=== PATIENT | female | born 1965 | race Hispanic/Latino ===

== ENCOUNTER → 2020-10-03 | Outpatient (CLI) | payer MEDICAID ==
[~2020-10-03] MED LIST: ACET1TAB25 PO; INSU300I SQ; LIDOCAINE HCL 4% LTA SOL 4 ML VIAL TP ONE; OXCA600T18 PO; QUET300T18 PO; SERT-439 PO; SULF1TAB89 PO
== END | disposition home or self-care (01) ==
LOC: WHH 08:20
PROVIDERS: ATTEND Podiatrist Foot & Ankle Surgery
DX: E11.621 Type 2 diabetes mellitus with foot ulcer (principal); L89.893 Pressure ulcer of other site, stage 3; L97.512 Non-pressure chronic ulcer of other part of right foot with fat layer exposed; E11.40 Type 2 diabetes mellitus with diabetic neuropathy, unspecified; E11.21 Type 2 diabetes mellitus with diabetic nephropathy; J44.9 Chronic obstructive pulmonary disease, unspecified; I10 Essential (primary) hypertension; E78.5 Hyperlipidemia, unspecified; E78.00 Pure hypercholesterolemia, unspecified; K21.9 Gastro-esophageal reflux disease without esophagitis; F31.9 Bipolar disorder, unspecified; Z79.01 Long term (current) use of anticoagulants; Z98.51 Tubal ligation status; Z90.49 Acquired absence of other specified parts of digestive tract
CPT/HCPCS: 11042; 87070; 87077; 87186; A4450; A6209

== ENCOUNTER 2021-09-13 11:51 | Inpatient (IN) | payer MEDICAID ==
[~2021-09-13] VITALS: Ht 149.9 cm; Wt 57.9 kg
[2021-09-13] VITALS (29 sets, daily range): BP systolic 85–129; BP diastolic 37–86
[~2021-09-13 11:51] MED LIST changes: +ACET-2079 PO; -ACET1TAB25 PO; -LIDOCAINE HCL 4% LTA SOL 4 ML VIAL TP ONE; -QUET300T18 PO; +QUET300T19 PO
[2021-09-13] MEDS ORDERED: ONDANSETRON 4MG INJ IVP ONE (12:30)
[2021-09-13] MEDS ORDERED: ZOSYN 3.375GM +NS 50ML IV SCH (12:30)
[2021-09-13] MEDS ORDERED: VANCOMYCIN 1G VIAL IVPB ONE (12:30)
[2021-09-13] MEDS ORDERED: MORPHINE 2 MG SYG IVP ONE (12:30)
[2021-09-13] MEDS ORDERED: 0.9%NACL 1000ML 1,905 ML IV ONE (12:30)
[2021-09-13] MEDS ORDERED: VANCOMYCIN 1G/250ML KIT 250 ML IV ONE (12:31)
[2021-09-13 12:33] LABS: BASOPHILS % (AUTO) 0.1 % (0.0-5.0); EOSINOPHILS % (AUTO) 0.7 % (0.0-8.0); HEMATOCRIT 29.5 % (36-48); LYMPHOCYTES % (AUTO) 7.5 % (21.0-51.0); MEAN CORPUSCULAR HEMOGLOBIN 26.2 pg (27.0-33.0); MEAN CORPUSCULAR HGB CONC 32.9 g/dL (32.0-36.0); MEAN CORPUSCULAR VOLUME 79.7 fL (79-99); MONOCYTES % (AUTO) 1.5 % (3.0-13.0); NEUTROPHILS % (AUTO) 88.3 % (40.0-77.0); PLATELET COUNT (AUTO) 243 K/uL (130-400); RED CELL DISTRIBUTION WIDTH 16.1 % (11.0-15.5); WHITE BLOOD COUNT (AUTO) 10.3 K/uL (4.8-10.8)
[2021-09-13 12:47] LABS: BILIRUBIN,TOTAL 1.2 mg/dL (0.2-1.0); TOTAL PROTEIN, SERUM 5.6 g/dL (6.0-8.3)
[2021-09-13] MEDS ORDERED: NOREPINEPHRIN 4MG/NS 250ML 250 ML IV SCH (13:00)
[2021-09-13 13:08] LABS: ALBUMIN 0.8 g/dL (3.5-5.0)
[2021-09-13 13:30] LABS: CREATININE 2.9 mg/dL (0.5-1.5)
[2021-09-13] MEDS ORDERED: VANCOMYCIN PROTOCOL PER PHARMACY IV SCH (13:30)
[2021-09-13] MEDS ORDERED: HYDRALAZINE 20MG/ML VIAL IV PRN (13:30)
[2021-09-13] MEDS: HEPARIN 5,000 UNIT VIAL SQ SCH (13:30)
[2021-09-13] MEDS ORDERED: LABETALOL 20MG SYG IV PRN (13:30)
[2021-09-13] MEDS ORDERED: ALBUTEROL 0.083% 2.5 MG/3 ML INH IH PRN (13:30)
[2021-09-13] MEDS ORDERED: ONDANSETRON 4MG INJ IVP PRN (13:30)
[2021-09-13] MEDS ORDERED: LACTULOSE 20 GM/30 ML UDCUP PO PRN (13:30)
[2021-09-13] MEDS ORDERED: DEXTROSE 50%-WATER 50 ML DISP.SYRIN IV ONE ×2 (13:39→18:42)
[2021-09-13 13:46] LABS: INR 1.42 (0.85-1.15); PROTHROMBIN TIME 15.2 SEC (9.6-11.6)
[2021-09-13 13:47] LABS: PARTIAL THROMBOPLASTIN TIME 42.1 SEC (26.3-35.5)
[2021-09-13] MEDS ORDERED: METRONIDAZOLE 500MG/100ML BAG 100 ML IVPB SCH (14:00)
[2021-09-13] MEDS ORDERED: SODIUM BICARB 8.4% 50ML SYRINGE IVP SCH ×2 (14:00)
[2021-09-13] MEDS: MIDODRINE HCL 5 MG TABLET PO SCH ×2 (14:00→21:00)
[2021-09-13] MEDS ORDERED: SUCCINYLCHOLINE 200MG/10ML SYR ONE (14:27)
[2021-09-13] MEDS ORDERED: LIDOCAINE PF 100MG/5ML (2%) SYRINGE 5ML ONE (14:27)
[2021-09-13] MEDS ORDERED: PROPOFOL 10 MG/ML 20ML VIAL IV ONE (14:27)
[2021-09-13] MEDS ORDERED: DEXAMETHASONE SOD PHOSPHATE 10MG/ML 1ML VIAL ONE (14:27)
[2021-09-13] MEDS ORDERED: MIDAZOLAM HCL 1 MG/ML 2ML VIAL ONE (14:27)
[2021-09-13] MEDS ORDERED: NEOSTIGMINE 5MG/5ML SYR IV ONE (14:28)
[2021-09-13] MEDS ORDERED: ONDANSETRON 4MG INJ ONE (14:28)
[2021-09-13] MEDS ORDERED: GLYCOPYRROLATE 1 MG/5 ML SYRINGE ONE (14:28)
[2021-09-13] MEDS ORDERED: SODIUM BICARB 50MEQ 50ML VIAL 100 ML ONE (14:29)
[2021-09-13] MEDS ORDERED: FENTANYL CITRATE PF 50 MCG/1 ML 2ML VIAL ONE (14:29)
[2021-09-13] MEDS ORDERED: ROCURONIUM 10MG/1ML SYR 10 MG/ML ML ONE (14:29)
[2021-09-13] MEDS ORDERED: KETAMINE 50MG/ML SYRINGE 50 MG/ML DISP.SYRIN IV ONE (14:35)
[2021-09-13] MEDS ORDERED: ALBUMIN (HUMAN) 5% 250 ML IV ONE (14:35)
[2021-09-13] MEDS: CEFEPIME HCL 1 GM VIAL IVP SCH (14:52)
[2021-09-13] MEDS: CLINDAMYCIN IVPB 600MG/50ML 50 ML IV SCH ×2 (14:52→21:01)
[2021-09-13] MEDS ORDERED: SUGAMMADEX SODIUM 200 MG/2 ML VIAL IV ONE (15:54)
[2021-09-13 16:27] LABS: ABG BASE EXCESS -8.7 mmol/L (-2.0-3.0); ABG OXYGEN SATURATION 99.4 % (95.0-99.0); ABG PCO2 30 mmHg (32-45)
[2021-09-13 18:23] LABS: BILIRUBIN,URINE Negative (NEGATIVE); COLOR,URINE Yellow (YELLOW); GLUCOSE, URINE (UA) Negative (NEGATIVE); KETONES,URINE Negative (NEGATIVE); LEUKOCYTE ESTERASE ,URINE Small (NEGATIVE); NITRATE,URINE Negative (NEGATIVE); OCCULT BLOOD,URINE Moderate (NEGATIVE); PH,URINE 5.5 (5.0-8.0); PROTEIN,URINE POS 2+ mg/dL (NEGATIVE); UROBILINOGEN,URINE 0.2 mg/dL (0.2-1.0)
[2021-09-13 18:33] LABS: APPEARANCE,URINE TURBID (CLEAR)
[2021-09-13 18:39] LABS: BACTERIA,URINE Few /HPF (None Seen); SQUAMOUS EPITHELIAL CELL,UR Moderate /HPF (0-2); YEAST,URINE BUDDING Many /HPF (None Seen)
[2021-09-13] MEDS: 0.9%NACL 1000ML 1,000 ML IV SCH (20:00)
[2021-09-13] MEDS: INSULIN HUMULIN R 100 UNIT/ML 3ML SQ SCH ×2 (20:59→21:00)
[2021-09-14] VITALS (79 sets, daily range): BP systolic 69–138; BP diastolic 34–133
[2021-09-14] MEDS: 0.9%NACL 1000ML 1,000 ML IV SCH (01:32)
[2021-09-14] MEDS: HEPARIN 5,000 UNIT VIAL SQ SCH ×2 (01:33→13:47)
[2021-09-14 04:43] LABS: BASOPHILS % (AUTO) 0.9 % (0.0-5.0); EOSINOPHILS % (AUTO) 0.2 % (0.0-8.0); HEMATOCRIT 28.5 % (36-48); LYMPHOCYTES % (AUTO) 2.7 % (21.0-51.0); MEAN CORPUSCULAR HEMOGLOBIN 26.2 pg (27.0-33.0); MEAN CORPUSCULAR HGB CONC 32.3 g/dL (32.0-36.0); MEAN CORPUSCULAR VOLUME 81.2 fL (79-99); MONOCYTES % (AUTO) 1.2 % (3.0-13.0); NEUTROPHILS % (AUTO) 91.7 % (40.0-77.0); PLATELET COUNT (AUTO) 233 K/uL (130-400); RED BLOOD CELL COUNT(AUTO) 3.51 MIL/uL (4.00-5.50); RED CELL DISTRIBUTION WIDTH 16.6 % (11.0-15.5); WHITE BLOOD COUNT (AUTO) 14.4 K/uL (4.8-10.8)
[2021-09-14 05:12] LABS: ALBUMIN 0.9 g/dL (3.5-5.0); BILIRUBIN,TOTAL 1.5 mg/dL (0.2-1.0); CREATININE 2.6 mg/dL (0.5-1.5); MAGNESIUM 1.3 mg/dL (1.80-2.40); PHOSPHORUS 4.5 mg/dL (2.5-4.9); POTASSIUM 3.4 mmol/L (3.5-5.1); THYROID STIMULATING HORMONE 1.54 uIU/mL (0.36-3.74); TOTAL PROTEIN, SERUM 5.3 g/dL (6.0-8.3)
[2021-09-14] MEDS: CLINDAMYCIN IVPB 600MG/50ML 50 ML IV SCH ×3 (05:15→21:33)
[2021-09-14] MEDS ORDERED: POTASSIUM CHLORIDE 10% ELIXIR 20 MEQ/15 ML UDCUP ONE (05:31)
[2021-09-14] MEDS ORDERED: MAGNESIUM 2GM PREMIX 50ML 50 ML IV ONE (05:32)
[2021-09-14] MEDS: INSULIN HUMULIN R 100 UNIT/ML 3ML SQ SCH ×4 (06:07→21:00)
[2021-09-14 07:29] LABS: ABG BASE EXCESS -9.3 mmol/L (-2.0-3.0); ABG HCO3 14.2 mmol/L (21.0-28.0); ABG OXYGEN SATURATION 98.6 % (95.0-99.0); ABG PCO2 26 mmHg (32-45)
[2021-09-14] MEDS ORDERED: COMPOUND IV MISC 1 EACH IVSOLN MISC PRN (07:30)
[2021-09-14] MEDS: PANTOPRAZOLE 40 MG TAB DR PO SCH (08:49)
[2021-09-14] MEDS: SODIUM BICARB 8.4% 50ML SYRING 150 MEQ in DEXTROSE 5%-WATER 1,000 ML IVP SCH ×2 (08:50→19:46)
[2021-09-14] MEDS: MIDODRINE HCL 5 MG TABLET PO SCH ×3 (08:50→21:33)
[2021-09-14] MEDS ORDERED: ENOXAPARIN SODIUM 30 MG/0.3 ML SQ SCH (09:00)
[2021-09-14] MEDS: CEFEPIME HCL 1 GM VIAL IVP SCH (13:46)
[2021-09-14] MEDS: NOREPINEPHRIN 4MG/NS 250ML 250 ML IV SCH (15:52)
[2021-09-14] MEDS ORDERED: KCL 20 MEQ ERTAB PO SCH (17:30)
[2021-09-14] MEDS: ACETAMINOPHEN 325 MG TAB PO PRN (19:36)
[2021-09-14] MEDS ORDERED: VANCOMYCIN 500MG+NS 100ML 100 ML IV ONE (20:08)
[2021-09-14] MEDS: VANCOMYCIN 500MG VIAL IVPB SCH (20:13)
[2021-09-15] VITALS (25 sets, daily range): BP systolic 107–154; BP diastolic 63–125
[2021-09-15] MEDS: HEPARIN 5,000 UNIT VIAL SQ SCH ×2 (01:40→13:30)
[2021-09-15] MEDS: SODIUM HYPOCHLORITE 0.5% [FULL STRENGTH] 473 ML TOPICAL SOLN TP SCH ×2 (03:16→08:34)
[2021-09-15] MEDS: ACETAMINOPHEN 325 MG TAB PO PRN (04:03)
[2021-09-15] MEDS: SODIUM BICARB 8.4% 50ML SYRING 150 MEQ in DEXTROSE 5%-WATER 1,000 ML IVP SCH ×2 (05:28→15:15)
[2021-09-15] MEDS: NOREPINEPHRIN 4MG/NS 250ML 250 ML IV SCH (05:29)
[2021-09-15 05:46] LABS: EOSINOPHILS % (AUTO) 0.1 % (0.0-8.0); HEMATOCRIT 30.4 % (36-48); MEAN CORPUSCULAR HEMOGLOBIN 26.3 pg (27.0-33.0); MEAN CORPUSCULAR HGB CONC 33.2 g/dL (32.0-36.0); MEAN CORPUSCULAR VOLUME 79.2 fL (79-99); MONOCYTES % (AUTO) 0.7 % (3.0-13.0); NEUTROPHILS % (AUTO) 87.3 % (40.0-77.0); PLATELET COUNT (AUTO) 227 K/uL (130-400); RED BLOOD CELL COUNT(AUTO) 3.84 MIL/uL (4.00-5.50); RED CELL DISTRIBUTION WIDTH 16.7 % (11.0-15.5); WHITE BLOOD COUNT (AUTO) 28.6 K/uL (4.8-10.8)
[2021-09-15] MEDS: CLINDAMYCIN IVPB 600MG/50ML 50 ML IV SCH (05:57)
[2021-09-15 06:20] LABS: ALBUMIN 0.8 g/dL (3.5-5.0); BILIRUBIN,TOTAL 0.7 mg/dL (0.2-1.0); CREATININE 2.9 mg/dL (0.5-1.5); POTASSIUM 3.5 mmol/L (3.5-5.1); TOTAL PROTEIN, SERUM 5.4 g/dL (6.0-8.3)
[2021-09-15] MEDS: INSULIN HUMULIN R 100 UNIT/ML 3ML SQ SCH ×4 (06:39→21:00)
[2021-09-15] MEDS: HONEY 1 APPL/ML TUBE TP SCH (08:33)
[2021-09-15] MEDS: MIDODRINE HCL 5 MG TABLET PO SCH ×3 (08:33→21:00)
[2021-09-15] MEDS: PANTOPRAZOLE 40 MG TAB DR PO SCH (08:33)
[2021-09-15 16:00] LABS: INR 1.28 (0.85-1.15); PROTHROMBIN TIME 13.8 SEC (9.6-11.6)
[2021-09-15] MEDS ORDERED: VANCOMYCIN 500MG+NS 100ML 100 ML IV ONE (19:47)
[2021-09-15] MEDS: VANCOMYCIN 500MG VIAL IVPB SCH (19:51)
[2021-09-15] MEDS ORDERED: ZOSYN 3.375GM +NS 50ML IV SCH (21:00)
[2021-09-15] MEDS ORDERED: DEXAMETHASONE SOD PHOSPHATE 10MG/ML 1ML VIAL ONE (21:02)
[2021-09-15] MEDS ORDERED: SUCCINYLCHOLINE CHLORIDE 20 MG/ML 10 ML VIAL ONE (21:02)
[2021-09-15] MEDS ORDERED: PROPOFOL 10 MG/ML 20ML VIAL IV ONE (21:02)
[2021-09-15] MEDS ORDERED: LIDOCAINE PF 100MG/5ML (2%) SYRINGE 5ML ONE (21:02)
[2021-09-15] MEDS ORDERED: GLYCOPYRROLATE 1 MG/5 ML SYRINGE ONE (21:03)
[2021-09-15] MEDS ORDERED: NEOSTIGMINE 5MG/5ML SYR IV ONE (21:03)
[2021-09-15] MEDS ORDERED: ONDANSETRON 4MG INJ ONE (21:03)
[2021-09-15] MEDS ORDERED: FENTANYL CITRATE PF 50 MCG/1 ML 2ML VIAL ONE (21:03)
[2021-09-15] MEDS ORDERED: ROCURONIUM 10MG/1ML SYR 10 MG/ML ML ONE (21:04)
[2021-09-15] MEDS ORDERED: MIDAZOLAM HCL 1 MG/ML 2ML VIAL ONE (21:04)
[2021-09-15] MEDS ORDERED: ETOMIDATE 20MG VIAL ONE ×2 (21:05→23:05)
[2021-09-15] MEDS ORDERED: ROPIVACAINE 0.5% 5MG/ML 30ML IJ ONE (21:09)
[2021-09-15] MEDS ORDERED: ALBUMIN (HUMAN) 5% 250 ML IV ONE (21:10)
[2021-09-15] MEDS ORDERED: EPHEDRINE SULFATE 50 MG/ML AMPULE ONE (21:23)
[2021-09-15] MEDS ORDERED: NOREPINEPHRINE BITARTRATE 1 MG/1 ML ML IV ONE (22:56)
[2021-09-15] MEDS ORDERED: SODIUM BICARB 8.4% 50ML SYRINGE ONE (22:58)
[2021-09-16] VITALS (51 sets, daily range): BP systolic 95–142; BP diastolic 47–83
[2021-09-16] MEDS ORDERED: PROPOFOL 1000 MG/100 ML 100 ML IV ONE
[2021-09-16] MEDS ORDERED: MIDAZOLAM 100MG-0.9% NS 100ML 100 ML IV ONE
[2021-09-16] MEDS: SODIUM BICARB 8.4% 50ML SYRING 150 MEQ in DEXTROSE 5%-WATER 1,000 ML IVP SCH (00:20)
[2021-09-16] MEDS ORDERED: PROPOFOL 1000 MG/100 ML IV PRN (00:30)
[2021-09-16] MEDS ORDERED: MIDAZOLAM 100MG-0.9% NS 100ML 100ML BAG IV PRN (00:30)
[2021-09-16] MEDS: HEPARIN 5,000 UNIT VIAL SQ SCH ×2 (01:06→13:46)
[2021-09-16 04:10] LABS: BASOPHILS % (AUTO) 0.4 % (0.0-5.0); EOSINOPHILS % (AUTO) 0.1 % (0.0-8.0); HEMATOCRIT 25.1 % (36-48); LYMPHOCYTES % (AUTO) 4.6 % (21.0-51.0); MEAN CORPUSCULAR HEMOGLOBIN 26.4 pg (27.0-33.0); MEAN CORPUSCULAR HGB CONC 33.9 g/dL (32.0-36.0); NEUTROPHILS % (AUTO) 86.7 % (40.0-77.0); PLATELET COUNT (AUTO) 146 K/uL (130-400); RED BLOOD CELL COUNT(AUTO) 3.22 MIL/uL (4.00-5.50); RED CELL DISTRIBUTION WIDTH 16.4 % (11.0-15.5); WHITE BLOOD COUNT (AUTO) 10.5 K/uL (4.8-10.8)
[2021-09-16 04:31] LABS: ALBUMIN 0.9 g/dL (3.5-5.0); CREATININE 2.6 mg/dL (0.5-1.5); POTASSIUM 3.1 mmol/L (3.5-5.1); TOTAL PROTEIN, SERUM 4.7 g/dL (6.0-8.3)
[2021-09-16] MEDS: INSULIN HUMULIN R 100 UNIT/ML 3ML SQ SCH ×4 (06:24→19:56)
[2021-09-16] MEDS: GABAPENTIN 300 MG CAPSULE PO SCH ×3 (08:30→19:55)
[2021-09-16] MEDS: PANTOPRAZOLE 40 MG TAB DR PO SCH (08:31)
[2021-09-16] MEDS: HONEY 1 APPL/ML TUBE TP SCH (08:31)
[2021-09-16] MEDS: SODIUM HYPOCHLORITE 0.5% [FULL STRENGTH] 473 ML TOPICAL SOLN TP SCH (08:31)
[2021-09-16] MEDS: MIDODRINE HCL 5 MG TABLET PO SCH ×3 (08:31→19:55)
[2021-09-16] MEDS: ZOSYN 3.375GM +NS 50ML IV SCH ×2 (08:50→19:54)
[2021-09-16 10:00] LABS: ABG BASE EXCESS 2.6 mmol/L (-2.0-3.0); ABG OXYGEN SATURATION 98.8 % (95.0-99.0); ABG PCO2 37 mmHg (32-45)
[2021-09-16] MEDS: HYDROMORPHONE 0.5 MG SYG (0.5MG/0.5ML) IVP PRN (19:53)
[2021-09-16] MEDS ORDERED: VANCOMYCIN 500MG+NS 100ML 100 ML IV SCH (20:00)
[2021-09-16] MEDS ORDERED: POTASSIUM CHLORIDE 10% ELIXIR 20 MEQ/15 ML UDCUP PO SCH (20:00)
[2021-09-16] MEDS: VANCOMYCIN 500MG VIAL IVPB SCH (20:00)
[2021-09-17] VITALS (24 sets, daily range): BP systolic 105–157; BP diastolic 22–94
[2021-09-17] MEDS: HEPARIN 5,000 UNIT VIAL SQ SCH ×2 (01:50→13:06)
[2021-09-17 02:18] LABS: HEPATITIS B SURFACE ANTIGEN Non-Reactive (Negative)
[2021-09-17 02:19] LABS: HEPATITIS C ANTIBODY Non-Reactive (NEGATIVE)
[2021-09-17 04:30] LABS: BASOPHILS % (AUTO) 0.2 % (0.0-5.0); EOSINOPHILS % (AUTO) 4.9 % (0.0-8.0); HEMATOCRIT 22.4 % (36-48); LYMPHOCYTES % (AUTO) 28.8 % (21.0-51.0); MEAN CORPUSCULAR HEMOGLOBIN 26.9 pg (27.0-33.0); MEAN CORPUSCULAR HGB CONC 33.9 g/dL (32.0-36.0); MEAN CORPUSCULAR VOLUME 79.2 fL (79-99); MONOCYTES % (AUTO) 4.8 % (3.0-13.0); NEUTROPHILS % (AUTO) 56.8 % (40.0-77.0); PLATELET COUNT (AUTO) 117 K/uL (130-400); RED BLOOD CELL COUNT(AUTO) 2.83 MIL/uL (4.00-5.50); RED CELL DISTRIBUTION WIDTH 16.8 % (11.0-15.5)
[2021-09-17 05:28] LABS: CREATININE 2.7 mg/dL (0.5-1.5); POTASSIUM 3.9 mmol/L (3.5-5.1)
[2021-09-17 05:32] LABS: ALBUMIN 0.8 g/dL (3.5-5.0); BILIRUBIN,TOTAL 0.5 mg/dL (0.2-1.0); TOTAL PROTEIN, SERUM 4.6 g/dL (6.0-8.3)
[2021-09-17] MEDS: INSULIN HUMULIN R 100 UNIT/ML 3ML SQ SCH ×4 (07:20→20:34)
[2021-09-17] MEDS ORDERED: VANCOMYCIN 500MG+NS 100ML 100 ML IV SCH ×2 (07:30→20:00)
[2021-09-17] MEDS: PANTOPRAZOLE 40 MG TAB DR PO SCH (08:03)
[2021-09-17] MEDS: MIDODRINE HCL 5 MG TABLET PO SCH ×2 (08:03→13:05)
[2021-09-17] MEDS: GABAPENTIN 300 MG CAPSULE PO SCH ×3 (08:03→20:31)
[2021-09-17] MEDS: ZOSYN 3.375GM +NS 50ML IV SCH (08:04)
[2021-09-17] MEDS: HONEY 1 APPL/ML TUBE TP SCH (08:13)
[2021-09-17] MEDS: SODIUM HYPOCHLORITE 0.5% [FULL STRENGTH] 473 ML TOPICAL SOLN TP SCH (08:17)
[2021-09-17] MEDS: HYDROMORPHONE 0.5 MG SYG (0.5MG/0.5ML) IVP PRN ×2 (14:30→20:34)
[2021-09-17] MEDS ORDERED: MIDODRINE HCL 5 MG TABLET PO PRN (20:00)
[2021-09-17] MEDS ORDERED: FUROSEMIDE 40MG VIAL IV ONE (20:30)
[2021-09-17] MEDS: INSULIN GLARGINE 100 UNITS/ML 10 ML VIAL SQ SCH (20:30)
[2021-09-17] MEDS: CEFTRIAXONE 1G VIAL IVP SCH (20:32)
[2021-09-18] MEDS: HEPARIN 5,000 UNIT VIAL SQ SCH ×2 (02:09→13:31)
[2021-09-18] MEDS: HYDROMORPHONE 0.5 MG SYG (0.5MG/0.5ML) IVP PRN ×4 (03:08→22:51)
[2021-09-18 03:24] VITALS: BP 105/65
[2021-09-18 05:33] LABS: BASOPHILS % (AUTO) 0.3 % (0.0-5.0); EOSINOPHILS % (AUTO) 8.6 % (0.0-8.0); HEMATOCRIT 24.8 % (36-48); LYMPHOCYTES % (AUTO) 27.1 % (21.0-51.0); MEAN CORPUSCULAR HEMOGLOBIN 26.1 pg (27.0-33.0); MEAN CORPUSCULAR HGB CONC 31.9 g/dL (32.0-36.0); MEAN CORPUSCULAR VOLUME 81.8 fL (79-99); MONOCYTES % (AUTO) 4.4 % (3.0-13.0); NEUTROPHILS % (AUTO) 57.4 % (40.0-77.0); PLATELET COUNT (AUTO) 117 K/uL (130-400); RED BLOOD CELL COUNT(AUTO) 3.03 MIL/uL (4.00-5.50); RED CELL DISTRIBUTION WIDTH 16.8 % (11.0-15.5); WHITE BLOOD COUNT (AUTO) 10.8 K/uL (4.8-10.8)
[2021-09-18 05:41] LABS: CREATININE 2.7 mg/dL (0.5-1.5); MAGNESIUM 1.6 mg/dL (1.80-2.40); POTASSIUM 3.8 mmol/L (3.5-5.1)
[2021-09-18] MEDS: INSULIN GLARGINE 100 UNITS/ML 10 ML VIAL SQ SCH (06:03)
[2021-09-18] MEDS: INSULIN HUMULIN R 100 UNIT/ML 3ML SQ SCH ×4 (06:03→20:32)
[2021-09-18 07:20] VITALS: BP 99/63
[2021-09-18] MEDS: GABAPENTIN 300 MG CAPSULE PO SCH ×3 (10:57→20:31)
[2021-09-18] MEDS: PANTOPRAZOLE 40 MG TAB DR PO SCH (11:01)
[2021-09-18 11:20] VITALS: BP 112/70
[2021-09-18] MEDS ORDERED: MAGNESIUM 2GM PREMIX 50ML 50 ML IV SCH (12:00)
[2021-09-18 15:15] VITALS: BP 123/76
[2021-09-18 20:00] VITALS: BP 120/74
[2021-09-18] MEDS: CEFTRIAXONE 1G VIAL IVP SCH (20:31)
[2021-09-18] MEDS: ZOSYN 3.375GM +NS 50ML IV SCH (22:30)
[2021-09-19] VITALS (24 sets, daily range): BP systolic 73–145; BP diastolic 40–75
[2021-09-19] MEDS: HEPARIN 5,000 UNIT VIAL SQ SCH ×2 (01:10→13:30)
[2021-09-19 05:07] LABS: HEMATOCRIT 24.1 % (36-48); MEAN CORPUSCULAR HEMOGLOBIN 26.1 pg (27.0-33.0); MEAN CORPUSCULAR HGB CONC 31.5 g/dL (32.0-36.0); MEAN CORPUSCULAR VOLUME 82.8 fL (79-99); RED BLOOD CELL COUNT(AUTO) 2.91 MIL/uL (4.00-5.50); RED CELL DISTRIBUTION WIDTH 16.3 % (11.0-15.5); WHITE BLOOD COUNT (AUTO) 10.8 K/uL (4.8-10.8)
[2021-09-19 05:16] LABS: CREATININE 2.5 mg/dL (0.5-1.5); POTASSIUM 4.1 mmol/L (3.5-5.1)
[2021-09-19 05:22] LABS: INR 0.99 (0.85-1.15); PROTHROMBIN TIME 10.8 SEC (9.6-11.6)
[2021-09-19 05:23] LABS: PARTIAL THROMBOPLASTIN TIME 33.5 SEC (26.3-35.5)
[2021-09-19] MEDS: INSULIN HUMULIN R 100 UNIT/ML 3ML SQ SCH ×4 (06:38→21:00)
[2021-09-19] MEDS: ZOSYN 3.375GM +NS 50ML IV SCH ×2 (08:25→21:32)
[2021-09-19] MEDS: GABAPENTIN 300 MG CAPSULE PO SCH ×3 (09:00→21:09)
[2021-09-19] MEDS: PANTOPRAZOLE 40 MG TAB DR PO SCH (09:00)
[2021-09-19] MEDS: FUROSEMIDE 20MG VIAL IV SCH (09:00)
[2021-09-19] MEDS: HYDROMORPHONE 0.5 MG SYG (0.5MG/0.5ML) IVP PRN ×3 (11:22→21:08)
[2021-09-19] MEDS ORDERED: MIDAZOLAM HCL 1 MG/ML 2ML VIAL ONE (13:40)
[2021-09-19] MEDS ORDERED: PROPOFOL 10 MG/ML 20ML VIAL IV ONE (13:40)
[2021-09-19] MEDS ORDERED: EPHEDRINE SULFATE 50 MG/ML AMPULE ONE (13:55)
[2021-09-19] MEDS ORDERED: FENTANYL CITRATE PF 50 MCG/1 ML 2ML VIAL ONE ×2 (14:14→14:59)
[2021-09-19] MEDS ORDERED: DEXTROSE 50%-WATER 50 ML DISP.SYRIN IV ONE (15:34)
[2021-09-20] MEDS: HYDROMORPHONE 0.5 MG SYG (0.5MG/0.5ML) IVP PRN ×4 (01:23→23:43)
[2021-09-20] MEDS: HEPARIN 5,000 UNIT VIAL SQ SCH ×2 (01:33→14:18)
[2021-09-20 03:55] VITALS: BP 110/67
[2021-09-20 05:36] LABS: HEMATOCRIT 27.9 % (36-48); MEAN CORPUSCULAR HEMOGLOBIN 26.4 pg (27.0-33.0); MEAN CORPUSCULAR HGB CONC 30.5 g/dL (32.0-36.0); MEAN CORPUSCULAR VOLUME 86.6 fL (79-99); PLATELET COUNT (AUTO) 213 K/uL (130-400); RED BLOOD CELL COUNT(AUTO) 3.22 MIL/uL (4.00-5.50); RED CELL DISTRIBUTION WIDTH 16.6 % (11.0-15.5)
[2021-09-20 05:45] LABS: CREATININE 2.4 mg/dL (0.5-1.5); POTASSIUM 4.6 mmol/L (3.5-5.1)
[2021-09-20] MEDS: INSULIN HUMULIN R 100 UNIT/ML 3ML SQ SCH ×4 (05:45→20:22)
[2021-09-20 09:43] VITALS: BP 132/80
[2021-09-20] MEDS: PANTOPRAZOLE 40 MG TAB DR PO SCH (09:58)
[2021-09-20] MEDS: GABAPENTIN 300 MG CAPSULE PO SCH ×3 (09:58→20:20)
[2021-09-20] MEDS: ZOSYN 3.375GM +NS 50ML IV SCH ×2 (09:59→20:21)
[2021-09-20] MEDS: FUROSEMIDE 20MG VIAL IV SCH (10:00)
[2021-09-20 11:10] VITALS: BP 116/65
[2021-09-20] MEDS ORDERED: TRAMADOL /APAP 37.5MG/325MG TAB PO PRN (12:30)
[2021-09-20] MEDS: GABAPENTIN 100 MG CAPSULE PO SCH ×2 (14:26→20:21)
[2021-09-20 15:05] VITALS: BP 133/77
[2021-09-20] MEDS ORDERED: HYDROMORPHONE 1 MG INJ IVP ONE (16:15)
[2021-09-20 20:00] VITALS: BP 134/86
[2021-09-20] MEDS: TRAMADOL /APAP 37.5MG/325MG TAB PO PRN (21:40)
[2021-09-21] VITALS: BP 126/70
[2021-09-21] MEDS: HEPARIN 5,000 UNIT VIAL SQ SCH ×3 (01:14→23:32)
[2021-09-21 04:47] VITALS: BP 125/70
[2021-09-21] MEDS: INSULIN HUMULIN R 100 UNIT/ML 3ML SQ SCH ×4 (05:59→20:55)
[2021-09-21 06:09] LABS: HEMATOCRIT 26.8 % (36-48); MEAN CORPUSCULAR HEMOGLOBIN 26.5 pg (27.0-33.0); MEAN CORPUSCULAR HGB CONC 31.3 g/dL (32.0-36.0); MEAN CORPUSCULAR VOLUME 84.5 fL (79-99); RED BLOOD CELL COUNT(AUTO) 3.17 MIL/uL (4.00-5.50); RED CELL DISTRIBUTION WIDTH 17.2 % (11.0-15.5); WHITE BLOOD COUNT (AUTO) 13.9 K/uL (4.8-10.8)
[2021-09-21 06:16] LABS: CREATININE 2.3 mg/dL (0.5-1.5); POTASSIUM 4.3 mmol/L (3.5-5.1)
[2021-09-21 08:00] VITALS: BP 130/67
[2021-09-21] MEDS: ZOSYN 3.375GM +NS 50ML IV SCH ×2 (08:27→20:17)
[2021-09-21] MEDS: PANTOPRAZOLE 40 MG TAB DR PO SCH (08:28)
[2021-09-21] MEDS: GABAPENTIN 300 MG CAPSULE PO SCH ×3 (08:28→20:17)
[2021-09-21] MEDS: FUROSEMIDE 20MG VIAL IV SCH (08:29)
[2021-09-21] MEDS: GABAPENTIN 100 MG CAPSULE PO SCH ×3 (08:50→20:17)
[2021-09-21] MEDS: HYDROMORPHONE 0.5 MG SYG (0.5MG/0.5ML) IVP PRN ×2 (08:50→19:21)
[2021-09-21 12:00] VITALS: BP 115/65
[2021-09-21] MEDS: TRAMADOL /APAP 37.5MG/325MG TAB PO PRN (14:32)
[2021-09-21 16:00] VITALS: BP 144/77
[2021-09-21 20:05] VITALS: BP 143/80
[2021-09-22 00:26] VITALS: BP 116/62
[2021-09-22] MEDS: HYDROMORPHONE 0.5 MG SYG (0.5MG/0.5ML) IVP PRN ×5 (01:33→19:59)
[2021-09-22] MEDS: TRAMADOL /APAP 37.5MG/325MG TAB PO PRN (04:01)
[2021-09-22 04:17] VITALS: BP 139/72
[2021-09-22] MEDS: INSULIN HUMULIN R 100 UNIT/ML 3ML SQ SCH ×3 (05:27→16:30)
[2021-09-22 05:49] LABS: HEMATOCRIT 27.1 % (36-48); MEAN CORPUSCULAR HEMOGLOBIN 26.5 pg (27.0-33.0); MEAN CORPUSCULAR HGB CONC 30.3 g/dL (32.0-36.0); MEAN CORPUSCULAR VOLUME 87.7 fL (79-99); RED BLOOD CELL COUNT(AUTO) 3.09 MIL/uL (4.00-5.50); RED CELL DISTRIBUTION WIDTH 17.9 % (11.0-15.5); WHITE BLOOD COUNT (AUTO) 12.4 K/uL (4.8-10.8)
[2021-09-22 06:06] LABS: CREATININE 2.2 mg/dL (0.5-1.5); POTASSIUM 4.1 mmol/L (3.5-5.1)
[2021-09-22 07:51] VITALS: BP 125/68
[2021-09-22] MEDS: PANTOPRAZOLE 40 MG TAB DR PO SCH (08:34)
[2021-09-22] MEDS: ZOSYN 3.375GM +NS 50ML IV SCH (08:34)
[2021-09-22] MEDS: GABAPENTIN 100 MG CAPSULE PO SCH ×2 (08:35→13:34)
[2021-09-22] MEDS: GABAPENTIN 300 MG CAPSULE PO SCH ×2 (08:35→13:34)
[2021-09-22] MEDS: FUROSEMIDE 20MG VIAL IV SCH (08:36)
[2021-09-22] MEDS ORDERED: FLUCONAZOLE 100 MG TAB PO SCH (09:00)
[2021-09-22 11:48] VITALS: BP 123/73
[2021-09-22] MEDS: HEPARIN 5,000 UNIT VIAL SQ SCH (13:35)
[2021-09-22] MEDS ORDERED: ASPIRIN 325MG TAB PO ONE (16:30)
[2021-09-22] MEDS ORDERED: ATORVASTATIN 40 MG TABLET PO SCH (21:00)
[2021-09-23] MEDS ORDERED: ASPIRIN 81 MG EC TAB PO SCH (09:00)
== END 2021-09-22 21:05 | DRG 710 ==
LOC: EDH 11:51 → EDHIP 11:52 → 2DH 19:30 → 2CH 09-14 01:24 → 3CH 09-17 19:16
PROVIDERS: ADMIT Internal Medicine Critical Care Medicine; ATTEND Internal Medicine Critical Care Medicine
PROC: 0J9P0ZZ Drainage of Left Lower Leg Subcutaneous Tissue and Fascia, Open Approach (ICD-10-PCS; 2021-09-13)
PROC: 05HY33Z Insertion of Infusion Device into Upper Vein, Percutaneous Approach (ICD-10-PCS; 2021-09-14)
PROC: 0Y6C0Z3 Detachment at Right Upper Leg, Low, Open Approach (ICD-10-PCS; principal; 2021-09-15 22:01)
PROC: 0YQF0ZZ Repair Right Knee Region, Open Approach (ICD-10-PCS; 2021-09-19)
DX: A41.9 Sepsis, unspecified organism (principal); R65.21 Severe sepsis with septic shock; N17.0 Acute kidney failure with tubular necrosis; M72.6 Necrotizing fasciitis; I21.4 Non-ST elevation (NSTEMI) myocardial infarction; L02.415 Cutaneous abscess of right lower limb; D63.8 Anemia in other chronic diseases classified elsewhere; E11.65 Type 2 diabetes mellitus with hyperglycemia; E78.5 Hyperlipidemia, unspecified; F31.9 Bipolar disorder, unspecified; I10 Essential (primary) hypertension; Z91.19 Patient's noncompliance with other medical treatment and regimen; Z20.822 Contact with and (suspected) exposure to COVID-19; M25.461 Effusion, right knee; J44.9 Chronic obstructive pulmonary disease, unspecified; E11.51 Type 2 diabetes mellitus with diabetic peripheral angiopathy without gangrene; N39.0 Urinary tract infection, site not specified; F41.9 Anxiety disorder, unspecified; L02.416 Cutaneous abscess of left lower limb; Z79.899 Other long term (current) drug therapy
CPT/HCPCS: 36415; 70450; 70544; 70551; 71045; 73700; 80048; 80053; 80202; 81001; 82140; 82435; 82550; 82803; 82947; 82948; 83605; 83735; 83880; 84100; 84132; 84145; 84295; 84443; 84484; 85018; 85025; 85027; 85610; 85730; 86140; 86701; 86850; 86900; 86901; 86923; 87040; 87070; 87076; 87077; 87088; 87186; 87205; 87340; 87390; 87520; 87635; 93005; 94002; 94003; 97039; C1751; C1894; G0378; J0330; J0692; J0696; J1100; J1170; J1644; J1815; J1940; J2001; J2250; J2405; J2543; J2704; J2710; J2795; J3010; J3370; J3475; J3490; J7030; J7070; P9045

== ENCOUNTER 2022-07-08 17:53 | Inpatient (IN) | payer MEDICAID ==
[~2022-07-08] VITALS: Ht 149.9 cm; Wt 49.6 kg
[~2022-07-08 17:53] MED LIST changes: +BUSP5TAB3 PO; +FOLI1 PO; +FURO20TA4 PO; -SULF1TAB89 PO
[2022-07-08 19:14] LABS: BASOPHILS % (AUTO) 0.2 % (0.0-5.0); EOSINOPHILS % (AUTO) 0.5 % (0.0-8.0); LYMPHOCYTES % (AUTO) 11.7 % (21.0-51.0); MEAN CORPUSCULAR HEMOGLOBIN 28.3 pg (27.0-33.0); MEAN CORPUSCULAR HGB CONC 29.6 g/dL (32.0-36.0); MEAN CORPUSCULAR VOLUME 95.8 fL (79-99); MONOCYTES % (AUTO) 7.7 % (3.0-13.0); NEUTROPHILS % (AUTO) 78.6 % (40.0-77.0); NUCLEATED RED BLOOD CELLS 0.2 % (0.0-0.19); PLATELET COUNT (AUTO) 441 K/uL (130-400); RED BLOOD CELL COUNT(AUTO) 1.66 MIL/uL (4.00-5.50); RED CELL DISTRIBUTION WIDTH 20.3 % (11.0-15.5)
[2022-07-08 19:26] LABS: POTASSIUM 3.4 mmol/L (3.5-5.1)
[2022-07-08 19:27] LABS: INR 1.05 (0.85-1.15); PROTHROMBIN TIME 11.4 SEC (9.6-11.6)
[2022-07-08 19:31] LABS: ALBUMIN 1.3 g/dL (3.5-5.0); TOTAL PROTEIN, SERUM 5.9 g/dL (6.0-8.3)
[2022-07-08 19:33] LABS: HEMATOCRIT 15.9 % (36-48)
[2022-07-08] MEDS ORDERED: ALPRAZOLAM 0.25 MG TABLET ONE (22:22)
[2022-07-08] MEDS: INSULIN HUMULIN R 100 UNIT/ML 3ML SQ SCH (22:27)
[2022-07-09] VITALS (22 sets, daily range): BP systolic 101–153; BP diastolic 48–96
[2022-07-09] MEDS: INSULIN HUMULIN R 100 UNIT/ML 3ML SQ SCH ×4 (06:29→21:00)
[2022-07-09] MEDS ORDERED: ALPRAZOLAM 0.5 MG TABLET PO PRN (07:00)
[2022-07-09 07:14] LABS: CREATININE 2.1 mg/dL (0.5-1.5); MAGNESIUM 1.7 mg/dL (1.80-2.40); PHOSPHORUS 3.2 mg/dL (2.5-4.9); POTASSIUM 3.3 mmol/L (3.5-5.1)
[2022-07-09 07:30] LABS: HEMOGLOBIN A1C 5.1 % (4.0-6.0)
[2022-07-09 08:07] LABS: BASOPHILS % (AUTO) 0.3 % (0.0-5.0); EOSINOPHILS % (AUTO) 1.1 % (0.0-8.0); LYMPHOCYTES % (AUTO) 6.5 % (21.0-51.0); MEAN CORPUSCULAR HEMOGLOBIN 29.5 pg (27.0-33.0); MEAN CORPUSCULAR HGB CONC 33.6 g/dL (32.0-36.0); MEAN CORPUSCULAR VOLUME 87.6 fL (79-99); MONOCYTES % (AUTO) 3.3 % (3.0-13.0); NUCLEATED RED BLOOD CELLS 0.8 % (0.0-0.19); PLATELET COUNT (AUTO) 319 K/uL (130-400); RED BLOOD CELL COUNT(AUTO) 2.51 MIL/uL (4.00-5.50); RED CELL DISTRIBUTION WIDTH 18.3 % (11.0-15.5); WHITE BLOOD COUNT (AUTO) 22.6 K/uL (4.8-10.8)
[2022-07-09] MEDS: METOCLOPRAMIDE 10 MG TABLET PO SCH ×3 (09:16→16:47)
[2022-07-09] MEDS: PANTOPRAZOLE 40 MG/VIAL IVP SCH (09:16)
[2022-07-09] MEDS ORDERED: PHARMACY COMMUNICATION MISC SCH ×2 (14:00→14:30)
[2022-07-09] MEDS ORDERED: LACTULOSE 20 GM/30 ML UDCUP PO ONE (14:32)
[2022-07-09] MEDS ORDERED: PEG 3350/NA SULF,BICARB,CL/KCL 4000 ML SOLN PO ONE (16:00)
[2022-07-09] MEDS ORDERED: HONEY 1 APPL/ML TUBE TP SCH (21:30)
[2022-07-09] MEDS ORDERED: NYSTATIN 15 GM POWDER TP SCH (21:30)
[2022-07-09] MEDS ORDERED: HEPARIN 5,000 UNIT VIAL IRRIG SCH (21:30)
[2022-07-09] MEDS ORDERED: MAGNESIUM 4GM PREMIX 100ML 100 ML IV ONE (21:30)
[2022-07-09] MEDS ORDERED: POTASSIUM CHLORIDE 10% ELIXIR 20 MEQ/15 ML UDCUP PO ONE (21:30)
[2022-07-10 02:32] LABS: HEPATITIS B SURFACE ANTIGEN Non-Reactive (Nonreactive)
[2022-07-10 03:24] VITALS: BP 146/88
[2022-07-10] MEDS ORDERED: POTASSIUM CHLORIDE 10% ELIXIR 20 MEQ/15 ML UDCUP ONE (04:22)
[2022-07-10] MEDS ORDERED: HYDROXYZINE 25 MG TABLET PO ONE (04:30)
[2022-07-10] MEDS: INSULIN HUMULIN R 100 UNIT/ML 3ML SQ SCH (05:21)
[2022-07-10 06:58] LABS: HEMATOCRIT 23.4 % (36-48); MEAN CORPUSCULAR HEMOGLOBIN 29.2 pg (27.0-33.0); MEAN CORPUSCULAR HGB CONC 31.6 g/dL (32.0-36.0); MEAN CORPUSCULAR VOLUME 92.5 fL (79-99); NUCLEATED RED BLOOD CELLS 0.2 % (0.0-0.19); RED BLOOD CELL COUNT(AUTO) 2.53 MIL/uL (4.00-5.50); RED CELL DISTRIBUTION WIDTH 19.9 % (11.0-15.5)
[2022-07-10 07:10] VITALS: BP 128/76
[2022-07-10 07:13] LABS: CREATININE 1.8 mg/dL (0.5-1.5); MAGNESIUM 2.2 mg/dL (1.80-2.40); POTASSIUM 4.2 mmol/L (3.5-5.1)
[2022-07-10] MEDS: PANTOPRAZOLE 40 MG/VIAL IVP SCH (08:32)
== END 2022-07-10 12:00 | disposition left against medical advice (07) | DRG 720 ==
LOC: EDH 17:53 → EDHIP 17:54 → 4BH 07-09 04:03
PROVIDERS: ADMIT Internal Medicine Infectious Disease; ATTEND Internal Medicine Infectious Disease
DX: A41.9 Sepsis, unspecified organism (principal); I12.0 Hypertensive chronic kidney disease with stage 5 chronic kidney disease or end stage renal disease; E11.22 Type 2 diabetes mellitus with diabetic chronic kidney disease; L97.929 Non-pressure chronic ulcer of unspecified part of left lower leg with unspecified severity; D64.9 Anemia, unspecified; E11.43 Type 2 diabetes mellitus with diabetic autonomic (poly)neuropathy; Z89.611 Acquired absence of right leg above knee; Z99.2 Dependence on renal dialysis; N18.6 End stage renal disease; Z89.511 Acquired absence of right leg below knee
CPT/HCPCS: 36415; 80048; 80053; 82270; 82948; 83036; 83605; 83735; 83880; 84100; 84484; 85007; 85025; 85027; 85610; 86704; 86706; 86850; 86900; 86901; 86923; 87040; 87070; 87076; 87077; 87186; 87340; 87635; 90935; 93005; 93306; 93356; C9113; G0378; J1644; J1815; J3475; P9016

== ENCOUNTER 2022-11-06 12:36 | Emergency (ER) | payer MEDICAID ==
[~2022-11-06 12:36] MED LIST changes: -ACET-2079 PO; -INSU300I SQ; -OXCA600T18 PO; -QUET300T19 PO; -SERT-439 PO
== END 2022-11-06 13:10 | disposition left against medical advice (07) ==
LOC: EDH 12:36
DX: Z53.21 Procedure and treatment not carried out due to patient leaving prior to being seen by health care provider (principal)

== ENCOUNTER → 2022-11-14 | Emergency (ER) | payer MEDICAID ==
[~2022-11-14] VITALS: Ht 152.4 cm; Wt 56.7 kg
[~2022-11-14] MED LIST changes: -FOLI1 PO; -FURO20TA4 PO
[2022-11-14 10:17] VITALS: BP 176/67; PULSE 90; RESP 20
== END ==
LOC: EDH 10:16
DX: T85.698A Other mechanical complication of other specified internal prosthetic devices, implants and grafts, initial encounter (principal); Z53.21 Procedure and treatment not carried out due to patient leaving prior to being seen by health care provider
CPT/HCPCS: 99281

== ENCOUNTER 2022-11-25 18:30 | Emergency (ER) | payer MEDICAID ==
[~2022-11-25] VITALS: Ht 157.5 cm; Wt 63.5 kg
[2022-11-25 18:32] VITALS: BP 163/48; PULSE 93; RESP 16
[2022-11-25] MEDS ORDERED: HYDROCODONE/ACETAMINOPHEN 5/325 MG TAB PO ONE (19:00)
[2022-11-25] MEDS ORDERED: MORPHINE 2 MG SYG IVP ONE (19:30)
[2022-11-25] MEDS ORDERED: ONDANSETRON 4MG INJ IVP ONE (19:30)
[2022-11-25] MEDS ORDERED: LORAZEPAM 2 MG/ML 1 ML VIAL IM ONE (19:30)
[2022-11-25] MEDS ORDERED: LACTATED RINGERS 1000ML 1,000 ML IV ONE (19:30)
== END 2022-11-25 20:16 | disposition left against medical advice (07) ==
LOC: EDH 18:30
DX: S72.452A Displaced supracondylar fracture without intracondylar extension of lower end of left femur, initial encounter for closed fracture (principal); E11.22 Type 2 diabetes mellitus with diabetic chronic kidney disease; I12.0 Hypertensive chronic kidney disease with stage 5 chronic kidney disease or end stage renal disease; N18.9 Chronic kidney disease, unspecified; N17.9 Acute kidney failure, unspecified; E78.00 Pure hypercholesterolemia, unspecified; F41.9 Anxiety disorder, unspecified; Z88.7 Allergy status to serum and vaccine; Z89.611 Acquired absence of right leg above knee; Z90.49 Acquired absence of other specified parts of digestive tract; Z99.2 Dependence on renal dialysis; W07.XXXA Fall from chair, initial encounter; Y93.89 Activity, other specified; Y92.89 Other specified places as the place of occurrence of the external cause; Y99.8 Other external cause status
CPT/HCPCS: 29505; 71045; 73562